=== PATIENT | female | born 1995 | race Caucasian/White ===

== ENCOUNTER 2019-03-08 12:21 | Inpatient (IN) | payer BC ==
[2019-03-08] MEDS ORDERED: Tranexamic Acid 1,000 MG in Sodium Chloride 0.9% 100 ML IV PRN (13:02)
[2019-03-08] MEDS ORDERED: Lidocaine 1% 50 ML MDV INJECT PRN (13:02)
[2019-03-08] MEDS ORDERED: Nalbuphine 10 MG/1 ML Vial IVPUSH PRN (13:02)
[2019-03-08] MEDS ORDERED: Butorphanol 1 MG/ML SDV IVPUSH PRN (13:02)
[2019-03-08] MEDS ORDERED: Water For Irrigation,Sterile 1,000 ML Container IRR PRN (13:02)
[2019-03-08] MEDS ORDERED: Sodium Chloride 0.9% 10 ML Syringe FLUSH PRN (13:02)
[2019-03-08] MEDS ORDERED: Sodium Chloride 0.9% 2.5 ML Syringe FLUSH PRN (13:02)
[2019-03-08] MEDS ORDERED: Misoprostol 200 MCG Tab PO PRN (13:02)
[2019-03-08] MEDS ORDERED: Carboprost Tromethamine 250 MCG/1 ML Amp IM PRN (13:02)
[2019-03-08] MEDS ORDERED: Sodium Chloride 0.9% 10 ML SDV IV PRN (13:02)
[2019-03-08] MEDS ORDERED: Methylergonovine 0.2 MG/1 ML Amp IM PRN (13:02)
[2019-03-08] MEDS ORDERED: Oxytocin/0.9 % Sodium Chloride 30 UNIT/500 ML BAG IV SCH ×2 (13:15→21:00)
[2019-03-08 14:27] LABS: BLOOD UREA NITROGEN,BUN 8 mg/dL (7.0-18.0); CARBON DIOXIDE,CO2 21.4 mmol/L (21.0-32.0); CHLORIDE,CL 104 mmol/L (98-107); GLUCOSE RANDOM 65 mg/dL (74-106); POTASSIUM,K 3.7 mmol/L (3.5-5.1); SODIUM,NA 137 mmol/L (136-145)
[2019-03-08] MEDS ORDERED: Terbutaline 1 MG/ML SDV SUBCUT PRN (20:58)
[2019-03-08] MEDS ORDERED: Loratadine 10 MG Tab PO SCH (21:45)
[2019-03-08] MEDS ORDERED: Fluticasone Propionate Nasal Spray 16 GM Bottle NASBOTH SCH (22:00)
--- NOTE | 2019-03-09 01:29 | HP ---
DATE OF : 1995 CHIEF COMPLAINT: Hypertension. HISTORY OF PRESENT ILLNESS: This is a 23-year-old female, G1, P0. She presents with having elevated blood pressures in clinic the week prior. She was notified to call the clinic if they were above a threshold. She called with blood pressures of 150s over 100s. She denies headache, visual changes, shortness of breath, chest pain, or significant increase in swelling. She was asked to come to Labor and Delivery for triage. Blood pressures were persistent in the same range. Additionally, laboratory studies were obtained. She had a normal protein to creatinine ratio. She had normal liver functions, normal uric acid, and normal platelets. However, due to persistently elevated blood pressures, currently being 37 weeks and 5 days gestation, decision was made to keep her for induction of labor. She agrees with the plan. Her care has been uncomplicated. She does, however, have a history of asthma. In discussing this with her and her mother, she has not had any hospitalizations. However, has had periods during her life when she needed to be on steroids, also inhaled steroids. Currently, uses albuterol on a fairly regular basis. Therefore, I do not feel that prostaglandins are an appropriate option for her for cervical ripening and I discussed this with her. When her cervix is at least a fingertip, I will attempt to place a balloon for assistance with ripening and I explained that the process of induction may take a significant amount of time. If she develops headache, hyperreflexia, or severe range blood pressures, that we would proceed with magnesium. I have reviewed all these issues with her and she does desire to proceed with Pitocin followed by balloon and monitoring serial blood pressures and treatment as needed. PAST MEDICAL HISTORY: Significant for asthma as noted above. PAST SURGICAL HISTORY: A left wrist fracture reduction in 2nd grade and wisdom teeth extraction. ALLERGIES: Seasonal. Tamiflu, which causes anaphylaxis. Penicillin, which causes hives. Sulfadiazine, which causes a rash; and latex, which causes a rash. FAMILY HISTORY: Significant for maternal grandfather with heart disease, diabetes, hypertension and gout. Maternal grandmother with COPD, autoimmune disease, macular degeneration, hypertension, diverticulitis, and retinal detachment. Mother with aneurysm, hypertension, hypotension, parotid gland tumor, hypoglycemia, and spina bifida. SOCIAL HISTORY: She is single, sexually active. She is engaged to her nPicker. She denies use of tobacco, alcohol, or street drugs. MEDICATIONS: Include Claritin, [id number] Flonase, [id number] vitamins, and albuterol inhaler as needed. REVIEW OF SYSTEMS: CONSTITUTIONAL: Negative for headache or visual changes. Negative for rash. GI: Negative. PULMONARY: Negative. CARDIOVASCULAR: Negative except for the hypertension. ENDOCRINE: Negative endocrine. PHYSICAL EXAMINATION: VITAL SIGNS: Blood pressure on admission was 154/105, currently 149/94, temperature is 98.3, pulse is 84, respiratory rate of 18. heart tones are 140s, moderate variability, accelerations present, no decelerations. [place] shows no contraction. GENERAL: She is alert and oriented. She is in no acute distress. NECK: Supple without lymphadenopathy or thyromegaly. LUNGS: Clear bilaterally. CARDIOVASCULAR: Regular rate without murmur. ABDOMEN: Soft, gravid, nontender. Estimated weight of 3300 g. There is no right upper quadrant tenderness. The fundus is nontender. EXTREMITIES: Show trace edema. Deep tendon reflexes are 3/4 with no clonus. GENITOURINARY: Vaginal examination is closed, -2 station. Unable to assess effacement. ASSESSMENT AND PLAN: 1. A 37-5/7 week intrauterine , gestational hypertension. We will admit for induction of labor. She has a negative preeclamptic evaluation. However, if blood pressures enter the severe range of 160/110, we will proceed with IV medication for antihypertensive treatment as well as magnesium and this plan was discussed with the patient. Also, when possible, a balloon will be placed for ripening of the cervix. 2. Asthma. Will avoid prostaglandins both for induction and ibuprofen and Toradol . She is known to be group B strep negative. REENA / MANOHAR /[id number]
[2019-03-09] MEDS: hydrALAZINE 20 MG/ML SDV IVPUSH PRN ×2 (04:20→08:39)
[2019-03-09] MEDS ORDERED: fentaNYL 100 MCG/2 ML SDV ONE ×2 (09:38→18:15)
[2019-03-09] MEDS ORDERED: Ropivacaine HCl/PF 100 ML ONE ×2 (09:38→18:15)
--- NOTE | 2019-03-09 10:04 | PCM.PREANE ---
Preanesthetic Assessment - Anesthesia/Transfusion/Family Hx Anesthesia History: Prior Anesthesia Without Reaction Family History of Anesthesia Reaction: No Transfusion History: No Prior Transfusion(s) - Review of Systems General: No Symptoms Pulmonary: Other Cardiovascular: Other - Physical Assessment NPO Status Date: 03/09/19 NPO Status Time: 00:05 Height: 1.65 m Weight: 108.862 kg ASA Class: 2 Mental Status: Alert & Oriented x3 Dentition: Reports: Normal Dentition - Lab Values: Laboratory Last Values WBC 10.41 K/uL (4.0-11.0) 03/08/19 13:25 RBC 4.02 M/uL (4.30-5.90) L 03/08/19 13:25 Hgb 12.2 g/dL (12.0-16.0) 03/08/19 13:25 Hct 35.5 % (36.0-46.0) L 03/08/19 13:25 MCV 88.3 fL (80.0-98.0) 03/08/19 13:25 MCH 30.3 pg (27.0-32.0) 03/08/19 13:25 MCHC 34.4 g/dL (31.0-37.0) 03/08/19 13:25 RDW Std Deviation 44.3 fl (28.0-62.0) 03/08/19 13:25 RDW Coeff of Ewa 14 % (11.0-15.0) 03/08/19 13:25 Plt Count 242 K/uL (150-400) 03/08/19 13:25 MPV 9.20 fL (7.40-12.00) 03/08/19 13:25 Nucleated RBC % 0.0 /100WBC 03/08/19 13:25 Nucleated RBCs # 0 K/uL 03/08/19 13:25 Sodium 137 mmol/L (136-145) 03/08/19 13:25 Potassium 3.7 mmol/L (3.5-5.1) 03/08/19 13:25 Chloride 104 mmol/L (98-107) 03/08/19 13:25 Carbon Dioxide 21.4 mmol/L (21.0-32.0) 03/08/19 13:25 BUN 8 mg/dL (7.0-18.0) 03/08/19 13:25 Creatinine 0.9 mg/dL (0.6-1.0) 03/08/19 13:25 Est Cr Clr Drug Dosing 85.98 mL/min 03/08/19 13:25 Estimated GFR (MDRD) > 60.0 ml/min 03/08/19 13:25 Glucose 65 mg/dL (74-106) L 03/08/19 13:25 Uric Acid 6.0 mg/dL (2.6-7.2) 03/08/19 13:25 Calcium 8.8 mg/dL (8.5-10.1) 03/08/19 13:25 Total Bilirubin 0.3 mg/dL (0.2-1.0) 03/08/19 13:25 AST 17 IU/L (15-37) 03/08/19 13:25 ALT 18 IU/L (14-63) 03/08/19 13:25 Alkaline Phosphatase 101 U/L (46-116) 03/08/19 13:25 Total Protein 7.1 g/dL (6.4-8.2) 03/08/19 13:25 Albumin 2.8 g/dL (3.4-5.0) L 03/08/19 13:25 Globulin 4.3 g/dL (2.6-4.0) H 03/08/19 13:25 Albumin/Globulin Ratio 0.7 (0.9-1.6) L 03/08/19 13:25 Urine Color YELLOW 03/08/19 13:25 Urine Appearance SLT CLOUDY 03/08/19 13:25 Urine pH 6.0 (5.0-8.0) 03/08/19 13:25 Ur Specific [place] <= 1.005 (1.001-1.035) 03/08/19 13:25 Urine Protein NEGATIVE mg/dL (NEGATIVE) 03/08/19 13:25 Urine Glucose (UA) NEGATIVE mg/dL (NEGATIVE) 03/08/19 13:25 Urine Ketones NEGATIVE mg/dL (NEGATIVE) 03/08/19 13:25 Urine Occult Blood NEGATIVE (NEGATIVE) 03/08/19 13:25 Urine Nitrite NEGATIVE (NEGATIVE) 03/08/19 13:25 Urine Bilirubin NEGATIVE (NEGATIVE) 03/08/19 13:25 Urine Urobilinogen 0.2 EU/dL (<2.0) 03/08/19 13:25 Ur Leukocyte Esterase LARGE (NEGATIVE) H 03/08/19 13:25 Ur Random Creatinine 67.0 mg/dL 03/08/19 13:25 U Random Total Protein 13.0 mg/dL (<11.9) H 03/08/19 13:25 Protein/Creatinin Ratio 0.2 03/08/19 13:25 Blood Type O POSITIVE 03/08/19 13:25 Antibody Screen NEGATIVE 03/08/19 13:25 - Allergies Allergies/Adverse Reactions: Allergies Allergy/AdvReac Type Severity Reaction Status Date / Time latex Allergy Swelling Verified 03/08/19 23:51 oseltamivir [From Tamiflu] Allergy Swollen Verified 03/08/19 23:51 Tongue Penicillins Allergy Hives Verified 03/08/19 12:51 Sulfa (Sulfonamide Allergy Rash Verified 03/08/19 23:51 Antibiotics) - Anesthesia Plan Free Text/Narrative:: History of Induced Hypertension, history of asthma, history of latex allergy - Acknowledgements Anesthesia Type Planned: Epidural Pt an Appropriate Candidate for the Planned Anesthesia: Yes Alternatives and Risks of Anesthesia Discussed w Pt/Guardian: Yes Pt/Guardian Understands and Agrees with Anesthesia Plan: Yes PreAnesthesia Questionnaire Respiratory History: Reports: Asthma, Other (See Below) Other Respiratory History: seasonal allergies, take claritin & flonase DIGITAL DATA ANALYST History: Reports: - Infectious Disease History Infectious Disease History: Reports: Chicken Pox, Other (See Below) Other Infectious Disease History: swine flu - Past Surgical History HEENT Surgical History: Reports: Other (See Below) Other HEENT Surgeries/Procedures: wisdom teeth removed Musculoskeletal Surgical History: Reports: Other (See Below) Other Musculoskeletal Surgeries/Procedures:: L arm reset due to fracture - SUBSTANCE USE Smoking Status *Q: Never Smoker Second Hand Smoke Exposure: No - HOME MEDS Home Medications: Home Meds Acetaminophen [Tylenol] 325 mg PO Q4H PRN 03/08/19 [History] Albuterol [Ventolin HFA] 1 puff INH QID 03/08/19 [History] Docusate Sodium [Stool Softener] 100 mg PO DAILY 03/08/19 [History] Fluticasone Propionate [Flonase] 16 gm NS DAILY 03/08/19 [History] Loratadine [Claritin] 10 mg PO BEDTIME 03/08/19 [History] Mag Carb/Al Hydrox/Alginic Ac [Gaviscon Liquid] 5 ml PO Q4H PRN 03/08/19 [ History] Pnv No.95/Ferrous Fum/Folic AC [ Vitamin Tablet] 1 tab PO DAILY [History] - CURRENT (IN HOUSE) MEDS Current Meds: Current Medications Butorphanol Tartrate (Stadol) 1 mg IVPUSH ASDIRECTED PRN PRN Reason: Pain Fluticasone Propionate (Flonase) 0 gm NASBOTH DAILY AZAM Hydralazine HCl (Apresoline) 20 mg IVPUSH Q2H PRN PRN Reason: Hypertension Last Admin: 03/09/19 08:39 Dose: 20 mg Tranexamic Acid 1,000 mg/ (Sodium Chloride) 110 mls @ 660 mls/hr IV ONETIME PRN PRN Reason: Bleeding Lactated Ringer's (Ringers, Lactated) 1,000 mls @ 150 mls/hr IV ASDIRECTED AZAM Oxytocin/Sodium Chloride (Oxytocin 30 Unit/500 Ml-Ns) 30 unit in 500 mls @ 999 mls/hr IV TITRATE AZAM Oxytocin/Sodium Chloride (Oxytocin 30 Unit/500 Ml-Ns) 30 unit in 500 mls @ 2 mls/hr IV TITRATE AZAM; Protocol Last Titration: 03/09/19 03:12 Dose: 18 munits/min, 18 mls/hr Lidocaine HCl (Xylocaine 1%) 50 ml INJECT ONETIME PRN PRN Reason: Laceration repair Loratadine (Claritin) 10 mg PO DAILY AZAM Last Admin: 03/08/19 22:00 Dose: 10 mg Nalbuphine HCl (Nubain) 10 mg IVPUSH ASDIRECTED PRN PRN Reason: Pain (severe 7-10) Sodium Chloride (Saline Flush) 10 ml FLUSH ASDIRECTED PRN PRN Reason: Keep Vein Open Sodium Chloride (Saline Flush) 2.5 ml FLUSH ASDIRECTED PRN PRN Reason: Keep Vein Open Sodium Chloride (Normal Saline) 10 ml IV ASDIRECTED PRN PRN Reason: IV Use Sterile Water (Sterile Water For Irrigation) 1,000 ml IRR ASDIRECTED PRN PRN Reason: delivery Terbutaline Sulfate (Brethine) 0.25 mg SUBCUT ASDIRECTED PRN PRN Reason: Tacysystole Discontinued Medications Carboprost Tromethamine (Hemabate Ds) 250 mcg IM ASDIRECTED PRN PRN Reason: Post Hemorrhage Fentanyl (Sublimaze) Confirm Administered Dose 100 mcg .ROUTE .STK-MED ONE Stop: 03/09/19 09:39 Fluticasone Propionate (Flonase) 1 gm NASBOTH DAILY AZAM Last Admin: 03/08/19 22:39 Dose: Not Given Ropivacaine (Naropin 0.2%) Confirm Administered Dose 100 mls @ as directed .ROUTE .STK-MED ONE Stop: 03/09/19 09:39 Methylergonovine Maleate (Methergine) 0.2 mg IM ASDIRECTED PRN PRN Reason: Post Hemorrhage Misoprostol (Cytotec) 200 mcg PO ONETIME PRN PRN Reason: Post Hemorrhage
[2019-03-09] MEDS: Lactated Ringers 1,000 ML IV SCH ×2 (10:07→18:24)
--- NOTE | 2019-03-09 10:07 | PCM.PRNOTE ---
- Free Text/Narrative Note: Anes Note Patient requests epidural for L&D. Sitting position, level L2-L2 midline approach. Sterile technique. Chloraprep scrub to lumbar area. Sterile fenestrated drape applied. Epidural space easily achieved single attempt with ease. MELANIE at 4 cm. Cath threaded 5 cm with ease. Epidural secured at skin at 9 cm using clear sterile adhesive dressing. Test 0945 3 cc 1.5% lido with epi negative. Load 0948 10 cc 0.2% ropivicaine with 1 mcg cc fentanyl in slow divided doses. 0952 Pump started same solution at 8 cc hr with 6 cc q 20 min prn bolus. Jossue well. Time with patient [id number] Mike Patel SOFTWARE ENGINEERING SUPERVISOR
--- NOTE | 2019-03-09 18:26 | PCM.PRNOTE ---
- Free Text/Narrative Note: Anes Note Epidural infusion completed. A new bag of 100 cc 0.2% ropivicaine with 1 mcg cc fentanyl added was placed. The pump was reset. The rate is 8 cc hr with 6 cc q 20 prn bolus. Patient reports excellent analgesia. Time with patient [id number]
--- NOTE | 2019-03-09 20:03 | PCM.DEL ---
L & D Note - General Info Date of Service: 03/09/19 Mother's Due Date: 03/24/20 - Delivery Note Labor: Induced by Oxytocin Delivery Outcome: Livebirth Infant Delivery Method: Spontaneous Vaginal Delivery-Single Presentation: Left Occiput Anterior (ELEONORA) Nuchal Cord: Present, Reduced Prep: Other Anesthesia Type: Epidural Amniotic Fluid Description: Clear Episiotomy Type: None Laceration: 2nd Degree Suture type: Vicryl Suture size: 3-0 Placenta: Intact, Spontaneous Cord: 3 Vessels Resuscitation Needed: Yes : Suctioned, Bulb Syringe, Stimulated, Warmed, Warmer Used (CPAP used) Score 1 min: 8 Score 5 min: 9 - General Info Date of Service: 03/09/19 - Patient Data Weight - Most Recent: 108.862 kg Med Orders - Current: Current Medications Butorphanol Tartrate (Stadol) 1 mg IVPUSH ASDIRECTED PRN PRN Reason: Pain Fluticasone Propionate (Flonase) 0 gm NASBOTH DAILY AZAM Hydralazine HCl (Apresoline) 20 mg IVPUSH Q2H PRN PRN Reason: Hypertension Last Admin: 03/09/19 08:39 Dose: 20 mg Tranexamic Acid 1,000 mg/ (Sodium Chloride) 110 mls @ 660 mls/hr IV ONETIME PRN PRN Reason: Bleeding Lactated Ringer's (Ringers, Lactated) 1,000 mls @ 150 mls/hr IV ASDIRECTED AZAM Last Admin: 03/09/19 18:24 Dose: 150 mls/hr Oxytocin/Sodium Chloride (Oxytocin 30 Unit/500 Ml-Ns) 30 unit in 500 mls @ 999 mls/hr IV TITRATE AZAM Oxytocin/Sodium Chloride (Oxytocin 30 Unit/500 Ml-Ns) 30 unit in 500 mls @ 2 mls/hr IV TITRATE AZAM; Protocol Last Titration: 03/09/19 16:00 Dose: 28 munits/min, 28 mls/hr Lidocaine HCl (Xylocaine 1%) 50 ml INJECT ONETIME PRN PRN Reason: Laceration repair Loratadine (Claritin) 10 mg PO DAILY AZAM Last Admin: 03/08/19 22:00 Dose: 10 mg Nalbuphine HCl (Nubain) 10 mg IVPUSH ASDIRECTED PRN PRN Reason: Pain (severe 7-10) Sodium Chloride (Saline Flush) 10 ml FLUSH ASDIRECTED PRN PRN Reason: Keep Vein Open Sodium Chloride (Saline Flush) 2.5 ml FLUSH ASDIRECTED PRN PRN Reason: Keep Vein Open Sodium Chloride (Normal Saline) 10 ml IV ASDIRECTED PRN PRN Reason: IV Use Sterile Water (Sterile Water For Irrigation) 1,000 ml IRR ASDIRECTED PRN PRN Reason: delivery Terbutaline Sulfate (Brethine) 0.25 mg SUBCUT ASDIRECTED PRN PRN Reason: Tacysystole Discontinued Medications Carboprost Tromethamine (Hemabate Ds) 250 mcg IM ASDIRECTED PRN PRN Reason: Post Hemorrhage Fentanyl (Sublimaze) Confirm Administered Dose 100 mcg .ROUTE .STK-MED ONE Stop: 03/09/19 09:39 Fentanyl (Sublimaze) Confirm Administered Dose 100 mcg .ROUTE .STK-MED ONE Stop: 03/09/19 18:16 Fluticasone Propionate (Flonase) 1 gm NASBOTH DAILY AZAM Last Admin: 03/08/19 22:39 Dose: Not Given Ropivacaine (Naropin 0.2%) Confirm Administered Dose 100 mls @ as directed .ROUTE .STK-MED ONE Stop: 03/09/19 09:39 Ropivacaine (Naropin 0.2%) Confirm Administered Dose 100 mls @ as directed .ROUTE .STK-MED ONE Stop: 03/09/19 18:16 Methylergonovine Maleate (Methergine) 0.2 mg IM ASDIRECTED PRN PRN Reason: Post Hemorrhage Misoprostol (Cytotec) 200 mcg PO ONETIME PRN PRN Reason: Post Hemorrhage - Problem List & Annotations (1) Transient hypertension of in third trimester SNOMED Code(s): 306354452, 594284245 Code(s): O13.3 - GESTATIONAL HTN W/O SIGNIFICANT PROTEINURIA, THIRD TRIMESTER Status: Acute Current Visit: Yes - Problem List Review Problem List Initiated/Reviewed/Updated: Yes - My Orders Last 24 Hours: My Active Orders 03/08/19 20:58 Bedrest Bathroom Privileges [RC] ASDIRECTED Communication Order [RC] ASDIRECTED Communication Order [RC] ASDIRECTED Notify Provider [RC] PRN Oxygen Therapy [RC] ASDIRECTED Vaginal Exam [RC] PRN Vital Signs [RC] PER UNIT ROUTINE Terbutaline [Brethine] 0.25 mg SUBCUT ASDIRECTED PRN 03/08/19 21:00 Oxytocin/0.9 % Sodium Chloride [Oxytocin 30 Unit/500 ML-NS] 30 unit in 500 ml IV TITRATE Medication Administration Instruction [OM.PC] Q3H 03/08/19 21:37 hydrALAZINE [Apresoline] 20 mg IVPUSH Q2H PRN 03/08/19 21:45 Loratadine [Claritin] 10 mg PO DAILY 03/09/19 22:00 Fluticasone Propionate [Flonase] 0 gm NASBOTH DAILY
[2019-03-09] MEDS ORDERED: Acetaminophen 500 MG Tab PO PRN ×2 (20:07)
[2019-03-09] MEDS ORDERED: Tranexamic Acid 1,000 MG in Sodium Chloride 0.9% 100 ML IV PRN (20:07)
[2019-03-09] MEDS ORDERED: Ibuprofen 400 MG Tab PO PRN (20:07)
[2019-03-09] MEDS ORDERED: Lanolin 100% Cream 7 GM Tube TOP PRN (20:07)
[2019-03-09] MEDS ORDERED: Docusate Sodium 100 MG Cap PO PRN (20:07)
[2019-03-09] MEDS ORDERED: Bisacodyl 10 MG Supp RECTAL PRN (20:07)
[2019-03-09] MEDS ORDERED: Benzocaine/Menthol 20%-0.5% Spray 78 GM Cannister TOP PRN (20:07)
[2019-03-09] MEDS ORDERED: Witch Hazel Medicated Pads 40/Jar TOP PRN (20:07)
--- NOTE | 2019-03-09 21:22 | OR ---
SURGEON: Bianka Grey M.D. DATE OF PROCEDURE: 03/09/2019 PREOPERATIVE DIAGNOSES: 37 and 6/7 weeks' intrauterine , gestational hypertension. POSTOPERATIVE DIAGNOSES: 37 and 6/7 weeks' intrauterine , gestational hypertension. PROCEDURE: Pitocin induction of labor, artificial rupture of membranes, term spontaneous vaginal delivery. PRIMARY SURGEON: Bianka Grey M.D. ANESTHESIA: Epidural. ESTIMATED BLOOD LOSS: Less than 200 mL. FINDINGS: Liveborn male, score 8 and 9. Weight is 7 pounds 11 ounces. Placenta spontaneous, Schultze intact with 3 vessels. Second-degree perineal laceration repaired. COMPLICATIONS: None known. DISPOSITION: Mother is in LDR in good condition. Baby is in nursery in observation. BRIEF HISTORY: This is a 23-year-old female. She is G1, P0. She presented at 37 and 5/7 weeks' gestation with elevated blood pressures in the range of 150s over 90s to 100s. She had an evaluation with laboratory studies, all being normal. She denied headache or other neurologic changes. Therefore, she was admitted for induction of labor. She was initially closed, 50%. She does have significant asthma, therefore I did not feel that I could use prostaglandins to assist with induction, so she was started on Pitocin at approximately 9 p.m. By 8 a.m., she was 3 cm, 80%. Artificial rupture of membranes was performed. Clear fluid was noted. She received an epidural for pain control. Intrauterine pressure catheter was placed. Pitocin was continued up to a maximum of 28 milliunits per minute. She had overall category 1 heart tones through the majority of labor with short episodes of category 2 heart tones. She was known to be group B strep negative. She progressed to complete. DESCRIPTION OF PROCEDURE: With the patient in dorsal lithotomy position, the patient pushed over 1-hour time period to a 5+ station, at which time the head was delivered spontaneously and atraumatically over the perineum with support with subsequent delivery of the 's shoulders and body without any difficulty. The infant was bulb suctioned by nose and mouth and after the cord had ceased to pulsate, it was doubly clamped and cut. The infant was handed to the mother in the presence of the nurse attending delivery. The was a live-born male, score of 8 and 9, weight of 7 pounds 11 ounces. There was a nuchal cord x1 that was reduced at the time of delivery. Post care was continued in the nursery for some retraction, but the baby remained stable. After delivery of the , Pitocin was initiated to assist with delivery of the placenta, which was delivered spontaneously. [place] intact with 3 vessels. Upon inspection of the pelvis and perineum, there were no periurethral, vaginal sidewall, cervical, or rectal lacerations. There was a second-degree perineal laceration, which was repaired with a running locked suture of 3-0 Vicryl for the vaginal mucosa, deep running suture of the same for the perineum and a subcuticular suture of the same for the skin. Final sponge, needle, and instrument counts were correct. There were no known complications. Mother is in LDR in good condition. Baby is in nursery in observation. REENA VILLELA /[id number]
[2019-03-09] MEDS ORDERED: Ibuprofen 800 MG Tab ONE (22:58)
--- NOTE | 2019-03-10 10:17 | PCM.PNPP ---
- General Info Date of Service: 03/10/19 Functional Status: Reports: Pain Controlled, Tolerating Diet, Ambulating, Urinating - Review of Systems General: Reports: No Symptoms HEENT: Reports: No Symptoms Pulmonary: Reports: No Symptoms Cardiovascular: Reports: No Symptoms Gastrointestinal: Reports: No Symptoms Genitourinary: Reports: No Symptoms Musculoskeletal: Reports: No Symptoms Skin: Reports: No Symptoms Neurological: Reports: No Symptoms Psychiatric: Reports: No Symptoms - Patient Data Vital Signs - Most Recent: Last Vital Signs Temp 36.7 C 03/10/19 07:45 Pulse 88 03/10/19 07:45 Resp 16 03/10/19 07:45 BP 136/83 03/10/19 07:45 Pulse Ox 96 03/10/19 07:45 Weight - Most Recent: 108.862 kg Lab Results - Last 24 Hours: Laboratory Results - last 24 hr 03/09/19 03/10/19 Range/Units 19:21 06:00 Hgb 10.6 L (12.0-16.0) g/dL Hct 30.7 L (36.0-46.0) % Cord ABG pH 7.225 (7.18-7.38) Cord ABG Base Excess -7 (-10--2) Cord VBG pH 7.326 (7.25-7.45) Cord VBG Base Excess -7 (-10--2) Micro Results - Last 24 Hours: Microbiology 03/08/19 13:25 Urine Culture - Final Urine, Clean Catch MIXED LILLIAM >100,000 CFU/ML Med Orders - Current: Current Medications Acetaminophen (Tylenol Extra Strength) 500 mg PO Q4H PRN PRN Reason: Pain Acetaminophen (Tylenol Extra Strength) 1,000 mg PO Q4H PRN PRN Reason: Pain Benzocaine/Menthol (Dermoplast Pain Relief 20%-0.5% [place]) 78 gm TOP ASDIRECTED PRN PRN Reason: Perineal Comfort Measure Last Admin: 03/09/19 23:08 Dose: 1 applic Bisacodyl (Dulcolax) 10 mg RECTAL ONETIME PRN PRN Reason: Constipation Docusate Sodium (Colace) 100 mg PO BID PRN PRN Reason: Constipation Emollient Ointment (Lansinoh Hpa) 0 gm TOP ASDIRECTED PRN PRN Reason: Sore Nipples Last Admin: 03/09/19 23:10 Dose: 1 applic Tranexamic Acid 1,000 mg/ (Sodium Chloride) 110 mls @ 660 mls/hr IV ONETIME PRN PRN Reason: Bleeding Ibuprofen (Motrin) 400 mg PO Q4H PRN PRN Reason: Pain Witch Gabriela (Tucks) 1 pad TOP ASDIRECTED PRN PRN Reason: comfort care Last Admin: 03/09/19 23:09 Dose: 1 applic Discontinued Medications Butorphanol Tartrate (Stadol) 1 mg IVPUSH ASDIRECTED PRN PRN Reason: Pain Carboprost Tromethamine (Hemabate Ds) 250 mcg IM ASDIRECTED PRN PRN Reason: Post Hemorrhage Fentanyl (Sublimaze) Confirm Administered Dose 100 mcg .ROUTE .STK-MED ONE Stop: 03/09/19 09:39 Fentanyl (Sublimaze) Confirm Administered Dose 100 mcg .ROUTE .STK-MED ONE Stop: 03/09/19 18:16 Fluticasone Propionate (Flonase) 1 gm NASBOTH DAILY AZAM Last Admin: 03/08/19 22:39 Dose: Not Given Fluticasone Propionate (Flonase) 0 gm NASBOTH DAILY AZAM Hydralazine HCl (Apresoline) 20 mg IVPUSH Q2H PRN PRN Reason: Hypertension Last Admin: 03/09/19 08:39 Dose: 20 mg Tranexamic Acid 1,000 mg/ (Sodium Chloride) 110 mls @ 660 mls/hr IV ONETIME PRN PRN Reason: Bleeding Lactated Ringer's (Ringers, Lactated) 1,000 mls @ 150 mls/hr IV ASDIRECTED AZAM Last Admin: 03/09/19 18:24 Dose: 150 mls/hr Oxytocin/Sodium Chloride (Oxytocin 30 Unit/500 Ml-Ns) 30 unit in 500 mls @ 999 mls/hr IV TITRATE AZAM Oxytocin/Sodium Chloride (Oxytocin 30 Unit/500 Ml-Ns) 30 unit in 500 mls @ 2 mls/hr IV TITRATE AZAM; Protocol Last Titration: 03/09/19 16:00 Dose: 28 munits/min, 28 mls/hr Ropivacaine (Naropin 0.2%) Confirm Administered Dose 100 mls @ as directed .ROUTE .STK-MED ONE Stop: 03/09/19 09:39 Ropivacaine (Naropin 0.2%) Confirm Administered Dose 100 mls @ as directed .ROUTE .STK-MED ONE Stop: 03/09/19 18:16 Ibuprofen (Motrin) Confirm Administered Dose 800 mg .ROUTE .STK-MED ONE Stop: 03/09/19 22:59 Last Admin: 03/09/19 23:10 Dose: 800 mg Lidocaine HCl (Xylocaine 1%) 50 ml INJECT ONETIME PRN PRN Reason: Laceration repair Loratadine (Claritin) 10 mg PO DAILY AZAM Last Admin: 03/08/19 22:00 Dose: 10 mg Methylergonovine Maleate (Methergine) 0.2 mg IM ASDIRECTED PRN PRN Reason: Post Hemorrhage Misoprostol (Cytotec) 200 mcg PO ONETIME PRN PRN Reason: Post Hemorrhage Nalbuphine HCl (Nubain) 10 mg IVPUSH ASDIRECTED PRN PRN Reason: Pain (severe 7-10) Sodium Chloride (Saline Flush) 10 ml FLUSH ASDIRECTED PRN PRN Reason: Keep Vein Open Sodium Chloride (Saline Flush) 2.5 ml FLUSH ASDIRECTED PRN PRN Reason: Keep Vein Open Sodium Chloride (Normal Saline) 10 ml IV ASDIRECTED PRN PRN Reason: IV Use Sterile Water (Sterile Water For Irrigation) 1,000 ml IRR ASDIRECTED PRN PRN Reason: delivery Terbutaline Sulfate (Brethine) 0.25 mg SUBCUT ASDIRECTED PRN PRN Reason: Tacysystole - Interaction Disposition, : in Room with Family Interaction: Holding Infant Feeding: Breastfed ; Nursed Well Support Person: Significant Other - Recovery Exam Fundal Tone: Firm Fundal Level: At Umbilicus Fundal Placement: Midline Lochia Amount: Small Lochia Color: Rubra/Red Perineum Description: Other (see below) Other Perinuem Description: 2nd degree laceration with repair Episiotomy/Laceration: Approximated Bladder Status: Voiding Urinary Elimination: Voided - Exam General: Alert, Oriented HEENT: Pupils Equal Neck: Supple Lungs: Normal Respiratory Effort GI/Abdominal Exam: Soft, Non-Tender Extremities: Normal Inspection, Non-Tender, No Pedal Edema Neurological: No New Focal Deficit Psy/Mental Status: Alert, Normal Affect, Normal Mood - Problem List & Annotations (1) Transient hypertension of in third trimester SNOMED Code(s): 634241640, 582309006 Code(s): O13.3 - GESTATIONAL HTN W/O SIGNIFICANT PROTEINURIA, THIRD TRIMESTER Status: Acute Current Visit: Yes - Problem List Review Problem List Initiated/Reviewed/Updated: Yes - My Orders Last 24 Hours: My Active Orders 03/09/19 20:07 Patient Status [ADT] Routine May Shower [RC] ASDIRECTED Up ad Angi [RC] ASDIRECTED Vital Signs [RC] PER UNIT ROUTINE Acetaminophen [Tylenol Extra Strength] 1,000 mg PO Q4H PRN Acetaminophen [Tylenol Extra Strength] 500 mg PO Q4H PRN Benzocaine/Menthol [Dermoplast Pain Relief 20%-0.5% [place]] 78 gm TOP ASDIRECTED PRN Bisacodyl [Dulcolax] 10 mg RECTAL ONETIME PRN Docusate Sodium [Colace] 100 mg PO BID PRN Ibuprofen [Motrin] 400 mg PO Q4H PRN Lanolin [Lansinoh HPA] See Dose Instructions TOP ASDIRECTED PRN Tranexamic Acid [Cyklokapron] 1,000 mg Sodium Chloride 0.9% [Normal Saline] 100 ml IV ONETIME Witch Gabriela [Tucks] 1 pad TOP ASDIRECTED PRN Assess Lochia [WOMSER] Per Unit Routine Assess Uterine Involution [WOMSER] Per Unit Routine Peripheral IV Discontinue [OM.PC] Routine Resuscitation Status Routine 03/09/19 20:08 Sitz Bath [OM.PC] Per Unit Routine 03/09/19 20:11 Notify Provider Vital Signs [RC] ASDIRECTED 03/10/19 Breakfast Regular Diet [DIET] - Assessment Assessment:: PPD#1 after , induced for gestational hypertension. BP much improved since delivery. Denies headache or visual changes, minimal lochia. - Plan Plan:: Will continue to monitor BP until tomorrow, continue care.
--- NOTE | 2019-03-10 11:00 | PCM.POSTAN ---
POST ANESTHESIA ASSESSMENT - MENTAL STATUS Mental Status: Alert - VITAL SIGNS Vital Signs: Last Vital Signs Temp 36.7 C 03/10/19 07:45 Pulse 88 03/10/19 07:45 Resp 16 03/10/19 07:45 BP 136/83 03/10/19 07:45 Pulse Ox 96 03/10/19 07:45 - RESPIRATORY Respiratory Status: Respiratory Rate WNL - CARDIOVASCULAR CV Status: Pulse Rate WNL - GASTROINTESTINAL GI Status: No Symptoms - POST OP HYDRATION Hydration Status: Adequate & Stable
--- NOTE | 2019-03-10 11:02 | PCM48HPAN ---
Post Anesthesia Note - EVALUATION WITHIN 48HRS OF ANESTHETIC Vital Signs in Normal Range: Yes Patient Participated in Evaluation: Yes Respiratory Function Stable: Yes Airway Patent: Yes Cardiovascular Function Stable: Yes Hydration Status Stable: Yes Pain Control Satisfactory: Yes Nausea and Vomiting Control Satisfactory: Yes Mental Status Recovered: Yes Vital Signs: Last Vital Signs Temp 36.7 C 03/10/19 07:45 Pulse 88 03/10/19 07:45 Resp 16 03/10/19 07:45 BP 136/83 03/10/19 07:45 Pulse Ox 96 03/10/19 07:45
--- NOTE | 2019-03-11 09:06 | PCM.PNPP ---
- General Info Date of Service: 03/11/19 Functional Status: Reports: Pain Controlled, Tolerating Diet, Ambulating, Urinating - Review of Systems General: Reports: Fatigue. Denies: Fever, Weakness Pulmonary: Denies: Shortness of Breath Cardiovascular: Denies: Chest Pain, Palpitations Gastrointestinal: Denies: Abdominal Pain Genitourinary: Denies: Dysuria, Frequency Musculoskeletal: Reports: No Symptoms Skin: Reports: No Symptoms Neurological: Reports: No Symptoms Psychiatric: Reports: No Symptoms - General Info Date of Service: 03/11/19 - Patient Data Vital Signs - Most Recent: Last Vital Signs Temp 37.2 C 03/11/19 06:12 Pulse 76 03/11/19 06:12 Resp 16 03/11/19 06:12 BP 116/75 03/11/19 06:12 Pulse Ox 94 L 03/11/19 06:12 Weight - Most Recent: 108.862 kg Micro Results - Last 24 Hours: Microbiology 03/08/19 13:25 Urine Culture - Final Urine, Clean Catch MIXED LILLIAM >100,000 CFU/ML Med Orders - Current: Current Medications Acetaminophen (Tylenol Extra Strength) 500 mg PO Q4H PRN PRN Reason: Pain Acetaminophen (Tylenol Extra Strength) 1,000 mg PO Q4H PRN PRN Reason: Pain Benzocaine/Menthol (Dermoplast Pain Relief 20%-0.5% [place]) 78 gm TOP ASDIRECTED PRN PRN Reason: Perineal Comfort Measure Last Admin: 03/09/19 23:08 Dose: 1 applic Bisacodyl (Dulcolax) 10 mg RECTAL ONETIME PRN PRN Reason: Constipation Docusate Sodium (Colace) 100 mg PO BID PRN PRN Reason: Constipation Emollient Ointment (Lansinoh Hpa) 0 gm TOP ASDIRECTED PRN PRN Reason: Sore Nipples Last Admin: 03/09/19 23:10 Dose: 1 applic Tranexamic Acid 1,000 mg/ (Sodium Chloride) 110 mls @ 660 mls/hr IV ONETIME PRN PRN Reason: Bleeding Ibuprofen (Motrin) 400 mg PO Q4H PRN PRN Reason: Pain Witch Gabriela (Tucks) 1 pad TOP ASDIRECTED PRN PRN Reason: comfort care Last Admin: 03/09/19 23:09 Dose: 1 applic Discontinued Medications Butorphanol Tartrate (Stadol) 1 mg IVPUSH ASDIRECTED PRN PRN Reason: Pain Carboprost Tromethamine (Hemabate Ds) 250 mcg IM ASDIRECTED PRN PRN Reason: Post Hemorrhage Fentanyl (Sublimaze) Confirm Administered Dose 100 mcg .ROUTE .STK-MED ONE Stop: 03/09/19 09:39 Fentanyl (Sublimaze) Confirm Administered Dose 100 mcg .ROUTE .STK-MED ONE Stop: 03/09/19 18:16 Fluticasone Propionate (Flonase) 1 gm NASBOTH DAILY AZAM Last Admin: 03/08/19 22:39 Dose: Not Given Fluticasone Propionate (Flonase) 0 gm NASBOTH DAILY AZAM Hydralazine HCl (Apresoline) 20 mg IVPUSH Q2H PRN PRN Reason: Hypertension Last Admin: 03/09/19 08:39 Dose: 20 mg Tranexamic Acid 1,000 mg/ (Sodium Chloride) 110 mls @ 660 mls/hr IV ONETIME PRN PRN Reason: Bleeding Lactated Ringer's (Ringers, Lactated) 1,000 mls @ 150 mls/hr IV ASDIRECTED AZAM Last Admin: 03/09/19 18:24 Dose: 150 mls/hr Oxytocin/Sodium Chloride (Oxytocin 30 Unit/500 Ml-Ns) 30 unit in 500 mls @ 999 mls/hr IV TITRATE AZAM Oxytocin/Sodium Chloride (Oxytocin 30 Unit/500 Ml-Ns) 30 unit in 500 mls @ 2 mls/hr IV TITRATE AZAM; Protocol Last Titration: 03/09/19 16:00 Dose: 28 munits/min, 28 mls/hr Ropivacaine (Naropin 0.2%) Confirm Administered Dose 100 mls @ as directed .ROUTE .STK-MED ONE Stop: 03/09/19 09:39 Ropivacaine (Naropin 0.2%) Confirm Administered Dose 100 mls @ as directed .ROUTE .STK-MED ONE Stop: 03/09/19 18:16 Ibuprofen (Motrin) Confirm Administered Dose 800 mg .ROUTE .STK-MED ONE Stop: 03/09/19 22:59 Last Admin: 03/09/19 23:10 Dose: 800 mg Lidocaine HCl (Xylocaine 1%) 50 ml INJECT ONETIME PRN PRN Reason: Laceration repair Loratadine (Claritin) 10 mg PO DAILY AZAM Last Admin: 03/08/19 22:00 Dose: 10 mg Methylergonovine Maleate (Methergine) 0.2 mg IM ASDIRECTED PRN PRN Reason: Post Hemorrhage Misoprostol (Cytotec) 200 mcg PO ONETIME PRN PRN Reason: Post Hemorrhage Nalbuphine HCl (Nubain) 10 mg IVPUSH ASDIRECTED PRN PRN Reason: Pain (severe 7-10) Sodium Chloride (Saline Flush) 10 ml FLUSH ASDIRECTED PRN PRN Reason: Keep Vein Open Sodium Chloride (Saline Flush) 2.5 ml FLUSH ASDIRECTED PRN PRN Reason: Keep Vein Open Sodium Chloride (Normal Saline) 10 ml IV ASDIRECTED PRN PRN Reason: IV Use Sterile Water (Sterile Water For Irrigation) 1,000 ml IRR ASDIRECTED PRN PRN Reason: delivery Terbutaline Sulfate (Brethine) 0.25 mg SUBCUT ASDIRECTED PRN PRN Reason: Tacysystole - Interaction Infant Disposition, : Teller in Room with Family Infant Interaction: Holding Infant Feeding: Breastfed ; Nursed Well Support Person: Significant Other - Recovery Exam Fundal Tone: Firm Fundal Level: At Umbilicus Fundal Placement: Midline Lochia Amount: Small Lochia Color: Rubra/Red Perineum Description: Other (see below) Other Perinuem Description: 2nd degree laceration with repair Episiotomy/Laceration: Approximated Bladder Status: Voiding Urinary Elimination: Voided - Exam General: Alert, Oriented Lungs: Normal Respiratory Effort Cardiovascular: Regular Rate, Regular Rhythm GI/Abdominal Exam: Normal Bowel Sounds, Soft Extremities: Normal Capillary Refill, Pedal Edema (trace). No: Sarah's Sign Skin: Warm, Dry, Intact Neurological: No New Focal Deficit Psy/Mental Status: Alert, Normal Affect, Normal Mood - Problem List & Annotations (1) Transient hypertension of in third trimester SNOMED Code(s): 770012598, 079102447 Code(s): O13.3 - GESTATIONAL HTN W/O SIGNIFICANT PROTEINURIA, THIRD TRIMESTER Status: Acute Current Visit: Yes - Problem List Review Problem List Initiated/Reviewed/Updated: Yes - My Orders Last 24 Hours: My Active Orders 03/11/19 09:03 Ready for Discharge [RC] PER UNIT ROUTINE - Assessment Assessment:: PPD#2 after , induced for gestational hypertension. - Plan Plan:: BPs remain normal range. Patient denies headache or visual changes. Will allow discharge to home today. Follow up at [facility] 1 week for BP check and 6 weeks for . Discharge instructions reviewed. Infection and bleeding warnings reviewed. To call if BP >140/90 at home.
== END 2019-03-11 14:10 | disposition home or self-care (01) | DRG 560 ==
LOC: MW.OB 12:21 → OBSVTOIN 03-09 20:07 → MW.OB 03-09 23:56
PROVIDERS: ADMIT Obstetrics & Gynecology; ATTEND Obstetrics & Gynecology
PROC: 10E0XZZ Delivery of Products of Conception, External Approach (ICD-10-PCS; principal; 2019-03-09)
PROC: 10907ZC Drainage of Amniotic Fluid, Therapeutic from Products of Conception, Via Natural or Artificial Opening (ICD-10-PCS; 2019-03-09)
PROC: 3E033VJ Introduction of Other Hormone into Peripheral Vein, Percutaneous Approach (ICD-10-PCS; 2019-03-09)
PROC: 0KQM0ZZ Repair Perineum Muscle, Open Approach (ICD-10-PCS; 2019-03-09)
PROC: 3E0R3BZ Introduction of Anesthetic Agent into Spinal Canal, Percutaneous Approach (ICD-10-PCS; 2019-03-09)
PROC: 00HU33Z Insertion of Infusion Device into Spinal Canal, Percutaneous Approach (ICD-10-PCS; 2019-03-09)
DX: O13.4 Gestational [pregnancy-induced] hypertension without significant proteinuria, complicating childbirth (principal); O99.52 Diseases of the respiratory system complicating childbirth; J45.909 Unspecified asthma, uncomplicated; Z3A.37 37 weeks gestation of pregnancy; Z37.0 Single live birth; O70.1 Second degree perineal laceration during delivery
CPT/HCPCS: 01967; 36415; 51702; 59025; 59409; 80053; 81003; 82570; 82803; 84156; 84550; 85014; 85018; 85027; 86593; 86850; 86900; 86901; 87086; A9270-GY; J0360; J2590; J2795; J3010; J7120